=== PATIENT | male | born 1970 | race Caucasian/White ===

== ENCOUNTER → 2021-05-28 | Day surgery (SDC) | payer OTHER ==
[~2021-05-28] MED LIST: HYDROCODON-ACE1 EAC4 PO; ICY HOT1 EAC1 TP; KENALOG 0.5% CR15 GM EXT; TYLENOL325 MG PO
== END | disposition home or self-care (01) ==
LOC: OR 05:30
DX: C85.15 Unspecified B-cell lymphoma, lymph nodes of inguinal region and lower limb (principal); J45.909 Unspecified asthma, uncomplicated; F17.200 Nicotine dependence, unspecified, uncomplicated; Z20.822 Contact with and (suspected) exposure to COVID-19; Z72.89 Other problems related to lifestyle
CPT/HCPCS: J0690; J1100; J2001; J2250; J2405; J2704; J3010; J7120